=== PATIENT | male | born 1950 | race Two or more races ===

== ENCOUNTER 2021-11-22 21:42 | Inpatient (IN) | payer OTHER ==
[~2021-11-22] VITALS: Ht 175.3 cm; Wt 106.2 kg
[2021-11-22] MEDS ORDERED: SODIUM CHLORIDE 0.9% 1,000 ML IV ONE ×4 (21:45→22:30)
[2021-11-22 22:36] LABS: Hematocrit 41.8 % (41.0-53.0); Hemoglobin 14.1 g/dL (13.5-17.5); Mean Corpuscular Hemoglobin 30.6 pg (28.0-32.0); Mean Corpuscular Hgb Conc. 33.7 g/dL (32.0-36.0); Mean Corpuscular Volume 90.8 fL (80.0-100.0); Red Cell Distribution Width 14.1 % (11.8-14.3); White Blood Cell 3.1 10^3/uL (4.4-10.8)
[2021-11-22 22:52] LABS: INR 1.84 (0.9-1.15); Partial Thromboplastin Time 27.3 sec (24.6-33.4)
[2021-11-22 22:55] LABS: Albumin 2.5 g/dL (3.4-5.0); Calcium 7.8 mg/dL (8.5-10.1); Potassium 3.4 mmol/L (3.5-5.1)
[2021-11-22 22:56] LABS: Basophils % (manual) 0 (0.0-2.0); Blast Cells 0; Eosinophils % (manual) 0 (0-7); Metamyelocytes % 0; Promyelocytes % 0; Reactive Lymphocytes 0
[2021-11-22 22:58] LABS: BUN/Creatinine Ratio 20.3; Bilirubin, Total 2.3 mg/dL (0.2-1.0); Total Protein 4.9 g/dL (6.4-8.2)
[2021-11-23 00:10] LABS: Band Neutrophils % (manual) 33; Lymphocytes % (manual) 15 (10.0-50.0); Monocytes % (manual) 20 (0-12); Myelocytes % 1
[2021-11-23] MEDS ORDERED: POTASSIUM EFFERVESENT TAB 25 MEQ PO ONE (04:45)
[2021-11-23] MEDS ORDERED: ACETAMINOPHEN 325 MG TAB PO PRN (10:15)
[2021-11-23] MEDS ORDERED: MORPHINE SULFATE INJ 2 MG/ml SYRG IV PRN (10:15)
[2021-11-23] MEDS: SODIUM CHLORIDE 0.9% 1,000 ML IV SCH ×2 (10:15→18:48)
[2021-11-23] MEDS ORDERED: NITROGLYCERIN 0.4 MG SL TAB SL PRN (10:15)
[2021-11-23] MEDS: DIPHENOXYLATE W/ATROPINE 2.5 MG TAB PO PRN (12:54)
[2021-11-23] MEDS: ONDANSETRON HCL 4 MG/2 ML VIAL IV PRN ×2 (17:57→22:40)
[2021-11-23 21:41] VITALS: BP 118/76
[2021-11-23] MEDS ORDERED: CLON0.1T PO (22:00)
[2021-11-23] MEDS ORDERED: ASPI1TAB20 PO (22:00)
[2021-11-23] MEDS ORDERED: CLOP75TA70 PO (22:00)
[2021-11-23] MEDS ORDERED: METO-289 PO (22:00)
[2021-11-23] MEDS ORDERED: LEVO112T4 PO (22:00)
[2021-11-24] MEDS: DIPHENOXYLATE W/ATROPINE 2.5 MG TAB PO PRN ×2 (00:58→09:30)
[2021-11-24] MEDS: SODIUM CHLORIDE 0.9% 1,000 ML IV SCH ×3 (02:55→19:35)
[2021-11-24] MEDS: HYDROcodone-ACET 5/325MG TAB PO PRN ×3 (03:00→19:25)
[2021-11-24 05:03] VITALS: BP 129/72
[2021-11-24 08:30] VITALS: BP 116/72
[2021-11-24] MEDS: ONDANSETRON HCL 4 MG/2 ML VIAL IV PRN ×2 (09:53→15:33)
[2021-11-24] MEDS: VANCOMYCIN HCL 125MG/5ML ORAL SOL PO SCH ×2 (12:49→17:26)
[2021-11-24 13:00] VITALS: BP 120/75
[2021-11-24] MEDS: metroNIDAZOLE 500MG/100ML 100 ML IV SCH ×2 (15:10→20:50)
[2021-11-24 16:19] LABS: Hemoglobin 13.8 g/dL (13.5-17.5); Mean Corpuscular Hemoglobin 29.8 pg (28.0-32.0); Mean Corpuscular Hgb Conc. 32.8 g/dL (32.0-36.0); Mean Corpuscular Volume 90.8 fL (80.0-100.0); Red Blood Cells 4.62 10^6/uL (4.5-5.90); Red Cell Distribution Width 14.7 % (11.8-14.3); White Blood Cell 4.5 10^3/uL (4.4-10.8)
[2021-11-24 16:26] VITALS: BP 123/70
[2021-11-24 16:28] LABS: Basophils % (manual) 0 (0.0-2.0); Blast Cells 0; Eosinophils % (manual) 0 (0-7); Metamyelocytes % 0; Myelocytes % 0; Promyelocytes % 0; Reactive Lymphocytes 0
[2021-11-24 16:30] LABS: Albumin 2.2 g/dL (3.4-5.0); BUN/Creatinine Ratio 20.4; Calcium 7.2 mg/dL (8.5-10.1); Potassium 3.5 mmol/L (3.5-5.1)
[2021-11-24 16:33] LABS: Bilirubin, Total 2.2 mg/dL (0.2-1.0); Total Protein 4.3 g/dL (6.4-8.2)
[2021-11-24 17:19] LABS: Band Neutrophils % (manual) 32; Lymphocytes % (manual) 18 (10.0-50.0); Monocytes % (manual) 20 (0-12)
[2021-11-24] MEDS: PANTOPRAZOLE 40 MG/10 ML VIAL INJ IV SCH (20:50)
[2021-11-24 22:00] VITALS: BP 127/79
[2021-11-25] MEDS: HYDROcodone-ACET 5/325MG TAB PO PRN (00:21)
[2021-11-25] MEDS ORDERED: MORPHINE SULFATE INJ 2 MG/ml SYRG IV PRN (02:30)
[2021-11-25] MEDS ORDERED: NITROGLYCERIN 0.4 MG SL TAB SL PRN (02:30)
[2021-11-25] MEDS: SODIUM CHLORIDE 0.9% 1,000 ML IV SCH ×3 (04:00→21:31)
[2021-11-25 05:00] VITALS: BP 124/80
[2021-11-25] MEDS: VANCOMYCIN HCL 125MG/5ML ORAL SOL PO SCH ×4 (06:54→21:31)
[2021-11-25] MEDS: metroNIDAZOLE 500MG/100ML 100 ML IV SCH ×3 (06:54→21:30)
[2021-11-25] MEDS: LEVOTHYROXINE SODIUM 112 MCG TAB PO SCH (06:54)
[2021-11-25] MEDS: PANTOPRAZOLE 40 MG/10 ML VIAL INJ IV SCH ×2 (08:30→21:30)
[2021-11-25 09:00] VITALS: BP 107/76
[2021-11-25] MEDS ORDERED: CLOPIDOGREL BISULFATE 75 MG TAB PO SCH (10:00)
[2021-11-25 13:21] VITALS: BP 117/77
[2021-11-25 16:49] VITALS: BP 128/81
[2021-11-25] MEDS: CALCIUM CARB 500 MG CHEW TAB PO SCH (18:14)
[2021-11-25] MEDS ORDERED: TEMAZEPAM 15 MG CAP PO PRN (20:00)
[2021-11-25] MEDS: PRAVASTATIN SODIUM 20 MG TAB PO SCH (21:31)
[2021-11-25 22:00] VITALS: BP 96/72
[2021-11-25] MEDS: CHOLESTYRAMINE 4 GM POWDER PO SCH (23:27)
[2021-11-26] MEDS: SODIUM CHLORIDE 0.9% 1,000 ML IV SCH ×2 (04:55→13:58)
[2021-11-26 05:00] VITALS: BP 95/60
[2021-11-26] MEDS: VANCOMYCIN HCL 125MG/5ML ORAL SOL PO SCH ×4 (05:25→21:25)
[2021-11-26] MEDS: metroNIDAZOLE 500MG/100ML 100 ML IV SCH ×3 (05:25→21:24)
[2021-11-26] MEDS: LEVOTHYROXINE SODIUM 112 MCG TAB PO SCH (06:04)
[2021-11-26] MEDS: CALCIUM CARB 500 MG CHEW TAB PO SCH ×3 (08:52→17:51)
[2021-11-26 09:00] VITALS: BP 113/69
[2021-11-26] MEDS: PANTOPRAZOLE 40 MG/10 ML VIAL INJ IV SCH ×2 (09:40→21:24)
[2021-11-26] MEDS: CHOLESTYRAMINE 4 GM POWDER PO SCH (11:18)
[2021-11-26] MEDS: FLORASTOR (S. BOULARDII) 250 MG CAP PO SCH ×2 (12:00→21:23)
[2021-11-26 13:00] VITALS: BP 101/63
[2021-11-26 16:12] LABS: BUN/Creatinine Ratio 11.8; Potassium 3.6 mmol/L (3.5-5.1)
[2021-11-26 17:00] VITALS: BP 86/56
[2021-11-26] MEDS: PRAVASTATIN SODIUM 20 MG TAB PO SCH (21:23)
[2021-11-26 22:00] VITALS: BP 99/66
[2021-11-27] MEDS: CHOLESTYRAMINE 4 GM POWDER PO SCH ×4 (00:34→22:44)
[2021-11-27] MEDS: SODIUM CHLORIDE 0.9% 1,000 ML IV SCH ×2 (00:41→06:26)
[2021-11-27 05:00] VITALS: BP 113/77
[2021-11-27 05:22] LABS: Basophils # (auto) 0 10 ^3/uL (0-0.2); Basophils % (auto) 0.2 % (0.0-2.0); Eosinophils # (auto) 0.1 10 ^3/uL (0-0.8); Eosinophils % (auto) 0.7 % (0.0-7.0); Hematocrit 39.7 % (41.0-53.0); Hemoglobin 13.3 g/dL (13.5-17.5); Lymphocytes % (auto) 10.9 % (10.0-50.0); Mean Corpuscular Hemoglobin 30.4 pg (28.0-32.0); Mean Corpuscular Hgb Conc. 33.4 g/dL (32.0-36.0); Mean Corpuscular Volume 91.1 fL (80.0-100.0); Monocytes # (auto) 1.7 10 ^3/uL (0-1.3); Neutrophils # (auto) 6.5 10 ^3/uL (1.6-8.6); Neutrophils % (auto) 69.7 % (37.0-80.0); Nucleated Red Blood Cells % 0.1 %; Red Blood Cells 4.36 10^6/uL (4.5-5.90); Red Cell Distribution Width 15.3 % (11.8-14.3); White Blood Cell 9.3 10^3/uL (4.4-10.8)
[2021-11-27 05:29] LABS: Monocytes % (auto) 18.5 % (0.0-12.0)
[2021-11-27 05:33] LABS: Magnesium 2.1 mg/dL (1.6-2.6); Potassium 3.7 mmol/L (3.5-5.1)
[2021-11-27] MEDS: LEVOTHYROXINE SODIUM 112 MCG TAB PO SCH (06:22)
[2021-11-27] MEDS: VANCOMYCIN HCL 125MG/5ML ORAL SOL PO SCH ×4 (06:23→22:43)
[2021-11-27] MEDS: metroNIDAZOLE 500MG/100ML 100 ML IV SCH ×3 (06:24→22:43)
[2021-11-27 08:37] VITALS: BP 121/73
[2021-11-27] MEDS: CALCIUM CARB 500 MG CHEW TAB PO SCH ×3 (10:16→17:39)
[2021-11-27] MEDS: PANTOPRAZOLE 40 MG/10 ML VIAL INJ IV SCH ×2 (10:16→22:42)
[2021-11-27] MEDS: FLORASTOR (S. BOULARDII) 250 MG CAP PO SCH ×2 (10:17→22:42)
[2021-11-27 12:50] VITALS: BP 111/78
[2021-11-27 16:18] VITALS: BP 107/75
[2021-11-27 22:00] VITALS: BP 114/68
[2021-11-27] MEDS: PRAVASTATIN SODIUM 20 MG TAB PO SCH (22:43)
[2021-11-28 05:00] VITALS: BP 113/71
[2021-11-28] MEDS: VANCOMYCIN HCL 125MG/5ML ORAL SOL PO SCH ×4 (05:55→23:00)
[2021-11-28] MEDS: metroNIDAZOLE 500MG/100ML 100 ML IV SCH ×3 (05:55→22:58)
[2021-11-28] MEDS: LEVOTHYROXINE SODIUM 112 MCG TAB PO SCH (06:40)
[2021-11-28] MEDS: CALCIUM CARB 500 MG CHEW TAB PO SCH ×3 (08:48→17:46)
[2021-11-28 09:27] VITALS: BP 128/76
[2021-11-28] MEDS: PANTOPRAZOLE 40 MG/10 ML VIAL INJ IV SCH ×2 (09:52→22:58)
[2021-11-28] MEDS: FLORASTOR (S. BOULARDII) 250 MG CAP PO SCH ×2 (09:52→22:58)
[2021-11-28 12:46] VITALS: BP 136/81
[2021-11-28] MEDS: CHOLESTYRAMINE 4 GM POWDER PO SCH ×2 (12:59→23:00)
[2021-11-28 16:22] VITALS: BP 162/72
[2021-11-28] MEDS ORDERED: FUROSEMIDE 20 MG/2 ML VIAL IV ONE (16:45)
[2021-11-28 22:00] VITALS: BP 114/69
[2021-11-28] MEDS: PRAVASTATIN SODIUM 20 MG TAB PO SCH (22:59)
[2021-11-28] MEDS: METOPROLOL TARTRATE 25 MG TAB PO SCH (23:00)
[2021-11-28] MEDS: HYDROcodone-ACET 5/325MG TAB PO PRN (23:01)
[2021-11-29 06:01] VITALS: BP 115/58
[2021-11-29] MEDS: VANCOMYCIN HCL 125MG/5ML ORAL SOL PO SCH ×4 (06:10→22:10)
[2021-11-29] MEDS: LEVOTHYROXINE SODIUM 112 MCG TAB PO SCH (06:10)
[2021-11-29] MEDS: metroNIDAZOLE 500MG/100ML 100 ML IV SCH ×2 (06:10→13:30)
[2021-11-29 06:43] LABS: Basophils # (auto) 0 10 ^3/uL (0-0.2); Basophils % (auto) 0.2 % (0.0-2.0); Eosinophils # (auto) 0.1 10 ^3/uL (0-0.8); Eosinophils % (auto) 0.7 % (0.0-7.0); Hematocrit 40.2 % (41.0-53.0); Hemoglobin 13.8 g/dL (13.5-17.5); Lymphocytes # (auto) 0.6 10 ^3/uL (0.4-5.4); Mean Corpuscular Hemoglobin 31.3 pg (28.0-32.0); Mean Corpuscular Hgb Conc. 34.2 g/dL (32.0-36.0); Mean Corpuscular Volume 91.4 fL (80.0-100.0); Monocytes # (auto) 1.2 10 ^3/uL (0-1.3); Monocytes % (auto) 12.2 % (0.0-12.0); Neutrophils # (auto) 7.8 10 ^3/uL (1.6-8.6); Neutrophils % (auto) 80.9 % (37.0-80.0); Nucleated Red Blood Cells % 0.2 %; White Blood Cell 9.6 10^3/uL (4.4-10.8)
[2021-11-29 06:51] LABS: BUN/Creatinine Ratio 13.7; Calcium 7.3 mg/dL (8.5-10.1); Magnesium 2.3 mg/dL (1.6-2.6); Potassium 3.5 mmol/L (3.5-5.1)
[2021-11-29 09:00] VITALS: BP 107/67
[2021-11-29] MEDS: CALCIUM CARB 500 MG CHEW TAB PO SCH ×3 (09:00→18:00)
[2021-11-29] MEDS: METOPROLOL TARTRATE 25 MG TAB PO SCH ×2 (10:00→22:00)
[2021-11-29] MEDS: PANTOPRAZOLE 40 MG/10 ML VIAL INJ IV SCH (10:30)
[2021-11-29] MEDS: FLORASTOR (S. BOULARDII) 250 MG CAP PO SCH ×2 (10:30→22:10)
[2021-11-29] MEDS: CHOLESTYRAMINE 4 GM POWDER PO SCH ×2 (11:30→23:27)
[2021-11-29 13:00] VITALS: BP 103/66
[2021-11-29] MEDS ORDERED: ALBUMIN 25% 50 ML IV SCH (14:45)
[2021-11-29 17:00] VITALS: BP 103/68
[2021-11-29] MEDS: ALBUMIN 25% 50 ML IV SCH (20:17)
[2021-11-29 22:00] VITALS: BP 112/75
[2021-11-29] MEDS: PRAVASTATIN SODIUM 20 MG TAB PO SCH (22:10)
[2021-11-30] MEDS: ALBUMIN 25% 50 ML IV SCH ×2 (04:45→14:07)
[2021-11-30 05:00] VITALS: BP 105/74
[2021-11-30 05:59] LABS: Calcium 7.5 mg/dL (8.5-10.1); Potassium 3.8 mmol/L (3.5-5.1)
[2021-11-30 06:02] LABS: BUN/Creatinine Ratio 14.6
[2021-11-30] MEDS: VANCOMYCIN HCL 125MG/5ML ORAL SOL PO SCH ×2 (06:25→11:04)
[2021-11-30] MEDS: LEVOTHYROXINE SODIUM 112 MCG TAB PO SCH (06:26)
[2021-11-30 08:00] VITALS: BP 105/64
[2021-11-30 09:00] VITALS: BP 105/64
[2021-11-30] MEDS: CALCIUM CARB 500 MG CHEW TAB PO SCH ×2 (09:15→13:30)
[2021-11-30] MEDS: METOPROLOL TARTRATE 25 MG TAB PO SCH (10:00)
[2021-11-30] MEDS: FLORASTOR (S. BOULARDII) 250 MG CAP PO SCH (11:06)
[2021-11-30] MEDS: CHOLESTYRAMINE 4 GM POWDER PO SCH (11:30)
[2021-11-30 13:00] VITALS: BP 105/65
[2021-11-30] MEDS ORDERED: CHL4PW PO (14:12)
[2021-11-30] MEDS ORDERED: VANC125C3 PO (14:12)
[2021-11-30 15:06] VITALS: BP 105/64
== END 2021-11-30 16:30 | disposition home or self-care (01) | DRG 371 ==
LOC: EDBD 21:42 → ER 21:44 → EDBD 21:44 → INTOOBSV 11-23 10:35 → TELE 11-23 10:35 → TELE-WESTW 11-23 20:45 → OBSVTOIN 11-25 02:21
PROVIDERS: ADMIT Internal Medicine; ATTEND Internal Medicine
PROC: 05HD33Z Insertion of Infusion Device into Right Cephalic Vein, Percutaneous Approach (ICD-10-PCS; principal; 2021-11-26)
PROC: B54MZZA Ultrasonography of Right Upper Extremity Veins, Guidance (ICD-10-PCS; 2021-11-26)
DX: A04.72 Enterocolitis due to Clostridium difficile, not specified as recurrent (principal); N17.0 Acute kidney failure with tubular necrosis; C20 Malignant neoplasm of rectum; D68.9 Coagulation defect, unspecified; C64.1 Malignant neoplasm of right kidney, except renal pelvis; E44.0 Moderate protein-calorie malnutrition; K62.7 Radiation proctitis; I95.9 Hypotension, unspecified; C61 Malignant neoplasm of prostate; I25.10 Atherosclerotic heart disease of native coronary artery without angina pectoris; D72.819 Decreased white blood cell count, unspecified; D69.6 Thrombocytopenia, unspecified; E86.0 Dehydration; F17.210 Nicotine dependence, cigarettes, uncomplicated; N18.9 Chronic kidney disease, unspecified; I12.9 Hypertensive chronic kidney disease with stage 1 through stage 4 chronic kidney disease, or unspecified chronic kidney disease; I25.2 Old myocardial infarction; Z82.3 Family history of stroke; Z85.048 Personal history of other malignant neoplasm of rectum, rectosigmoid junction, and anus; Z85.46 Personal history of malignant neoplasm of prostate; Z85.528 Personal history of other malignant neoplasm of kidney; Z86.79 Personal history of other diseases of the circulatory system; Z90.5 Acquired absence of kidney; Z90.79 Acquired absence of other genital organ(s); Z92.3 Personal history of irradiation; Z95.1 Presence of aortocoronary bypass graft; Z95.2 Presence of prosthetic heart valve; Z88.5 Allergy status to narcotic agent; Z88.0 Allergy status to penicillin; T45.1X5A Adverse effect of antineoplastic and immunosuppressive drugs, initial encounter
CPT/HCPCS: 36415; 71045; 74176; 80048; 80053; 83735; 84484; 85007; 85025; 85027; 85610; 85730; 87493; 93005; 96361; 96374; 97110; 97116; 97530; C9113; G0378; J2405; J3490